=== PATIENT | female | born 1965 | race Caucasian/White ===

== ENCOUNTER 2020-09-28 15:00 | Outpatient (REF) | payer OTHER, SELFPAY ==
[2020-09-28 18:21] LABS: COVID-19 Test Negative (Negative)
== END 2020-09-28 15:01 | disposition home or self-care (01) ==
LOC: HO.EMPCOV 15:00
PROVIDERS: PCP Internal Medicine; Visit Provider Internal Medicine
DX: Z20.828 Contact with and (suspected) exposure to other viral communicable diseases (principal)
CPT/HCPCS: 87635; C9803

== ENCOUNTER 2023-02-27 09:35 | Outpatient (REF) | payer OTHER, SELFPAY ==
--- NOTE | ~2023-02-27 | XR_ITS ---
EXAMINATION: XR WRIST, RIGHT CLINICAL INFORMATION: Pain. COMPARISON: None available. TECHNIQUE: PA, lateral, and oblique views of the right wrist. FINDINGS: The bones and soft tissues are normal. No fracture. Alignment is anatomic with normal joint spaces. No erosions or abnormal soft tissue calcifications. XR/XR wrist RT min 3V IMPRESSION: Unremarkable right wrist.
== END 2023-02-27 09:36 | disposition home or self-care (01) ==
LOC: HO.HMGCX 09:35
PROVIDERS: PCP Internal Medicine; Visit Provider Nurse Practitioner Family
DX: M25.531 Pain in right wrist (principal)
CPT/HCPCS: 73110

== ENCOUNTER 2025-03-10 08:47 | Outpatient (REF) | payer OTHER, SELFPAY ==
--- NOTE | ~2025-03-10 | XR_ITS ---
EXAMINATION: XR HAND 3 OR MORE VIEWS LEFT HISTORY: W19.XXXA - Unspecified fall, initial encounter COMPARISON: There are no prior studies available for comparison. FINDINGS: Three views of the left hand are submitted. Osseous mineralization is normal. There is a nondisplaced transverse fracture of the distal radial metaphysis. An additional tiny osseous density is seen adjacent to the ulnar styloid which likely represents a fracture fragment. The joint spaces are preserved. The soft tissues are unremarkable. XR/XR hand LT min 3V IMPRESSION: Nondisplaced transverse fracture of the distal radial metaphysis. Probable additional fracture of the ulnar styloid. Electronically signed by: Saeed Garcia MD 03/10/2025 09:18 AM EDT
--- NOTE | ~2025-03-10 | XR_ITS ---
EXAMINATION: XR FOREARM, LEFT CLINICAL INFORMATION: W19.XXXA - Unspecified fall, initial encounter COMPARISON: None available. TECHNIQUE: AP and lateral views of the left forearm were obtained. FINDINGS: Nondisplaced fracture distal radial metaphysis. Minimally displaced ulnar styloid fracture. No additional fractures of the radius and ulna. Elbow joint appears intact without effusion. XR/XR forearm LT 2V IMPRESSION: Nondisplaced fracture distal radial metaphysis. Minimally displaced ulnar styloid fracture. Otherwise no additional fractures seen. Electronically signed by: Magnus Palma MD 03/10/2025 09:21 AM EDT
== END 2025-03-10 08:48 | disposition home or self-care (01) ==
LOC: HO.HMGCX 08:47
PROVIDERS: PCP Internal Medicine; Visit Provider Nurse Practitioner Family
DX: M79.632 Pain in left forearm (principal); M79.642 Pain in left hand; W19.XXXD Unspecified fall, subsequent encounter
CPT/HCPCS: 73090; 73130

== ENCOUNTER → 2025-03-10 08:50 | Outpatient (BNV) | payer OTHER, SELFPAY | PROVIDERS: PCP Internal Medicine; Visit Provider Radiology Diagnostic Radiology | DX: S52.321A Displaced transverse fracture of shaft of right radius, initial encounter for closed fracture (principal); W19.XXXA Unspecified fall, initial encounter | CPT/HCPCS: 73090; 73130 ==

== ENCOUNTER 2025-03-12 09:26 | Outpatient (REF) | payer OTHER, SELFPAY ==
--- NOTE | ~2025-03-12 | XR_ITS ---
EXAMINATION: XR WRIST, LEFT CLINICAL INFORMATION: M25.532 - Pain in left wrist COMPARISON: None TECHNIQUE: PA, lateral, oblique, and spot scaphoid views of the left wrist. FINDINGS: There is a mildly impacted fracture of the distal radial metaphysis. There is post traumatic ulnar plus variance measuring 3 mm. There is a corticated ossification in the ulnar fovea, probably chronic. XR/XR wrist LT w scaphoid IMPRESSION: Impacted distal left radial fracture with post traumatic ulnar plus variance measuring 3 mm. Electronically signed by: Wes Lebron MD 03/12/2025 05:33 PM EDT
== END 2025-03-12 09:27 | disposition home or self-care (01) ==
LOC: HO.HOSX 09:26
PROVIDERS: Visit Provider Orthopaedic Surgery
DX: M25.532 Pain in left wrist (principal); S52.502A Unspecified fracture of the lower end of left radius, initial encounter for closed fracture
CPT/HCPCS: 25600; 73110

== ENCOUNTER 2025-03-12 09:56 | Outpatient (AMB) | payer OTHER, SELFPAY ==
--- NOTE | 2025-03-12 10:04 | MHC.OFFVIS ---
Vital Signs 03/12/25 10:06 Height 5 ft 8 in Weight 140 lb BMI 21.3 Intake Visit Reasons: FC LT distal radial fx, Ulnar styloid fx Intake Note: Tresa 59 yr old left hand dominant female presents today for a fracture care visit for her left distal radius & ulnar styloid fracture from DOI 03/09/25. States while hiking she tripped and fell, she put her hand out to break her fall. Xrays werer taken taken, splinted and referrerd to orthopedic. Currently states she has no pain, denies numbness, tingling or surgery. Allergies No Known Allergies Allergy (Verified 03/12/25 10:07) HPI HPI FC LT distal radial fx, Ulnar styloid fx: Details: Tresa is a 59 year old left hand dominant woman who presents for a left distal radius fracture, after a fall, DOI: 03/09/25. She was out hiking when she tripped and fell. This was splinted and she was referred here. 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 She says she is doing well overall. She denies any pain, numbness, or tingling. [facility] Medical History (Updated 03/10/25 @ 09:34 by Puja Rubin MD) Closed fracture of left distal radius Social History (Updated 03/12/25 @ 10:08 by Pura Hale [facility]) Current occupation: left/ PCP MD at formerly [employer] Review of Systems Const All systems reviewed & are unremarkable except as noted in HPI and below Physical Exam Vital Signs: BMI result Body Mass Index 21.3 Const General: cooperative, healthy appearing and no acute distress Orientation/consciousness: patient oriented x3 HEENT Head: Yes normocephalic and Yes atraumatic Eyes EOM: EOMs intact bilaterally Resp Effort & Inspection: normal respiratory effort and able to speak in complete sentences Cardio Jugular venous distension: no JVD Skin General skin exam: turgor normal Rashes: no rashes Neuro General: patient oriented x3 Extrem Other: Evaluation of Left Upper Extremity: The patient is alert, oriented, and in no acute distress Neuro: Median, Ulnar, Radial nerves motor and sensory intact and sensation is normal to the tips of all digits Vascular: Cap refill brisk ROM: She can make a fist and extend all her digits Good elbow ROM without pain Skin: No lacerations or abrasions or evidence of open fracture General: Ecchymosis about the volar wrist Mild swelling about the wrist No Erythema or evidence of infection. TTP over the fracture site NTTP over the distal ulna No snuffbox or scaphoid tubercle tenderness Radiographs: 3 views of the left wrist + scaphoid view were taken and viewed by me today in clinic. They show a transverse distal radius metaphysis fracture, and a small ulnar styloid fracture. Satisfactory fracture alignment. Distal radius neutral on the lateral view. Psych Appearance: grossly normal Affect: normal affect Attitude: cooperative Assessment & Plan Assessment & Plan (1) Closed fracture of left distal radius: Code(s): S52.502A - Unspecified fracture of the lower end of left radius, initial encounter for closed fracture Category: Medical Plan Assessment & Plan: 1. Left distal radius metaphysis fracture, transverse From a fall, DOI: 03/09/25 I believe we can manage this non operatively. We will place her in a short-arm cast with follow up next week. New radiographs out of plaster. She does understand that there is a chance she may need surgery. If she looks good we will put her back in a cast for 3 more weeks. I educated her about this condition I discussed operative and non-operative treatment options We will manage this conservatively at this time, and she is in agreement She was placed in a short arm cast, to be worn for the next 4 weeks I discussed activity modifications, she is to lift nothing heavier than a cellphone for the next 4 weeks She will perform gentle finger ROM exercises at home She should keep her wrist elevated at or above heart level She works as a PCP. She was given a note to return to work on light duty, with a 1lb weight limit with her LUE, for the next 4 weeks. She will follow up next week with me, with X-rays, 3V L wrist, OOP to assess for any fracture motion. Anticipate either proceeding with surgery, or placement in a new cast if there is no motion Scribed for Phyllis Grant MD by Sarwat Cordero, medical grade shoemaker, on 03/12/25 at 10:15 AM, EST. Orders: Orders XR wrist LT w scaphoid Today M25.532 - Pain in left wrist Coding Level of Care Code New Pt Level 4 (16751) Diagnoses Closed fracture of left distal radius S52.502A
[2025-03-12 10:06] VITALS: BMI 21.3
== END 2025-03-12 10:57 | disposition home or self-care (01) ==
LOC: HO.HOS 09:56
PROVIDERS: PCP Internal Medicine; Visit Provider Orthopaedic Surgery
DX: S52.502A Unspecified fracture of the lower end of left radius, initial encounter for closed fracture (principal)
CPT/HCPCS: 25600; 99204

== ENCOUNTER → 2025-03-12 09:57 | Outpatient (BNV) | payer OTHER, SELFPAY | PROVIDERS: Visit Provider Radiology Diagnostic Radiology | DX: M25.532 Pain in left wrist (principal) | CPT/HCPCS: 73110 ==

== ENCOUNTER 2025-03-18 07:58 | Outpatient (REF) | payer OTHER, SELFPAY ==
--- NOTE | ~2025-03-18 | XR_ITS ---
EXAMINATION: XR WRIST NAVICULAR LEFT HISTORY: M25.539 - Pain in unspecified wrist COMPARISON: Comparison is made with the prior examination dated 03/12/2025. FINDINGS: Four views of the left wrist including a scaphoid view are submitted. Osseous mineralization is normal. Again seen is a fracture of the distal radial metaphysis. The fracture line remains visible. A corticated density adjacent to the ulnar styloid is also unchanged. The joint spaces are preserved. The soft tissues are unremarkable. XR/XR wrist LT w scaphoid IMPRESSION: Fracture of the distal radial metaphysis without change. Electronically signed by: Saeed Garcia MD 03/18/2025 09:35 AM EDT
== END 2025-03-18 07:59 | disposition home or self-care (01) ==
LOC: HO.HOSX 07:58
PROVIDERS: PCP Internal Medicine; Visit Provider Physician Assistant
DX: S52.502A Unspecified fracture of the lower end of left radius, initial encounter for closed fracture (principal); W19.XXXA Unspecified fall, initial encounter; Y93.9 Activity, unspecified; Y92.9 Unspecified place or not applicable; Y99.9 Unspecified external cause status
CPT/HCPCS: 29075; 73110

== ENCOUNTER 2025-03-18 07:58 | Outpatient (AMB) | payer OTHER, SELFPAY ==
--- NOTE | 2025-03-18 08:16 | A.OFFVIS_ITS ---
Vital Signs 03/18/25 08:42 Height 5 ft 8 in Weight 140 lb BMI 21.3 Handedness Left Intake Visit Reasons: OV- Left distal radius metaphysis fx DOI 03/09/25 Intake Note: Tresa is a left hand dominant female who presents today for a follow up visit for her left distal radius metaphysis fracture, transverse status post fall, DOI: 03/09/25. Short arm cast removed today in office and x-rays have been updated. Patient reports she is doing better. She mentions that the cast was fine. Patient is having some bruising on the volar aspect of the wrist. 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 She presents to the office today for evaluation of a left distal radius fracture that she sustained on 03/09/2025 when she fell. She is placed into a splint and instructed to follow up with orthopedics outpatient for further evaluation and treatment. 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 Able to perform full finger flexion and extension. Able to make a closed fist. Sensation intact. Capillary refill is brisk. 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 She presents to the office today for evaluation of a left distal radius fracture that she sustained on 03/09/2025 when she fell. She is placed into a splint and instructed to follow up with orthopedics outpatient for further evaluation and treatment. While in the office today, I discussed the case with Dr. Grant who was available but did not see the patient with me. I educated the patient on the importance of not performing any lifting pushing or pulling greater than a coffee cup or a cell phone. I discussed the risks of overdoing activities may lead to further displacement of the fracture of the distal radius. The patient was placed into a short-arm cast at this time. Patient was educated on cast maintenance and instructed to keep the cast clean, dry, and intact. However, should the cast become wet, dirty, damaged, or there are any concerns please call the office immediately for a cast change. She will follow up in [address] Grant as requested with repeat x-rays cast off, sooner if needed. X-rays of the left wrist and scaphoid which were obtained while in the office today and were reviewed by me, Charlotte Tim PA-C, revealed impacted left distal radius fracture. Orders: Orders XR wrist LT w scaphoid Today M25.539 - Pain in unspecified wrist Coding Level of Care Code New Pt Level 4 (32483) Diagnoses Closed fracture of left distal radius S52.502A CPT Codes Fracture Care - Fracture Billing Code: Fracture Billing Code ([id number]) Casting - CPT: 15284-Pcpk/Wrist Cast Application ([id number])
[2025-03-18 08:42] VITALS: BMI 21.3
== END 2025-03-18 09:13 | disposition home or self-care (01) ==
LOC: HO.HOS 07:59
PROVIDERS: PCP Internal Medicine; Visit Provider Physician Assistant
DX: S52.502A Unspecified fracture of the lower end of left radius, initial encounter for closed fracture (principal)
CPT/HCPCS: 29075; 99024

== ENCOUNTER → 2025-03-18 08:23 | Outpatient (BNV) | payer OTHER, SELFPAY | PROVIDERS: PCP Internal Medicine; Visit Provider Radiology Diagnostic Radiology | DX: M25.532 Pain in left wrist (principal) | CPT/HCPCS: 73110 ==

== ENCOUNTER 2025-04-15 10:40 | Outpatient (REF) | payer OTHER, SELFPAY | END 2025-04-15 10:41 | disposition home or self-care (01) | LOC: HO.HOSX 10:40 | PROVIDERS: Visit Provider Orthopaedic Surgery | DX: Z13.89 Encounter for screening for other disorder (principal) ==

== ENCOUNTER 2025-04-16 09:58 | Outpatient (REF) | payer OTHER, SELFPAY ==
--- NOTE | ~2025-04-16 | XR_ITS ---
CLINICAL HISTORY: M25.532 - Pain in left wrist 3 view left wrist Comparison: None provided Findings: There is an impacted distal radial metaphyseal fracture. Mild apex volar angulation without displacement. There is some sclerosis and periosteal reaction suggesting this may be a subacute fracture. Small osseous fragment adjacent to the ulnar styloid concerning for fracture. Mild surrounding soft tissue swelling. IMPRESSION: 1. Impacted mildly angulated distal radial metaphyseal fracture with some osseous sclerosis suggesting this may be a subacute fracture. Small osseous fragment adjacent to the ulnar styloid. This document has been electronically signed by: Lorraine Srivastava MD on 04/17/2025 09:20:08
== END 2025-04-16 09:59 | disposition home or self-care (01) ==
LOC: HO.HOSX 09:58
PROVIDERS: PCP Internal Medicine; Visit Provider Orthopaedic Surgery
DX: S52.502D Unspecified fracture of the lower end of left radius, subsequent encounter for closed fracture with routine healing (principal)
CPT/HCPCS: 73110

== ENCOUNTER 2025-04-16 09:58 | Outpatient (AMB) | payer OTHER, SELFPAY ==
[2025-04-16 10:09] VITALS: BMI 21.3
--- NOTE | 2025-04-16 10:09 | A.OFFVIS_ITS ---
Vital Signs 04/16/25 10:09 Height 5 ft 8 in Weight 140 lb BMI 21.3 Intake Visit Reasons: OV-LT distal radius metaphysis fx -03/09/25-w/XR Intake Note: Tresa 59 yr old right hand dominant female presents today for her left distal radius metaphysis fracture from DOI -03/09/25- At her last visit she was placed in a short arm cast and advise no heavy lifting. Cast removed and xrays updated in office. States she has no pain or concerns. Allergies No Known Allergies Allergy (Verified 04/16/25 10:15) HPI HPI OV-LT distal radius metaphysis fx -03/09/25-w/XR: Details: Tresa is a 59 year old left hand dominant woman who returns for her left distal radius fracture, after a fall, DOI: 03/09/25. She was out hiking when she tripped and fell. 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 She denies any pain, numbness, or tingling. She has no concerns at this time. She is planning to travel to [place] for a few weeks soon. 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[employer] Review of Systems Const All systems reviewed & are unremarkable except as noted in HPI and below Physical Exam Vital Signs: BMI result Body Mass Index 21.3 Const General: no acute distress and alert Orientation/consciousness: patient oriented x3 Neuro General: patient oriented x3 Extrem Other: Evaluation of Left Upper Extremity: The patient is alert, oriented, and in no acute distress Neuro: Median, Ulnar, Radial nerves motor and sensory intact and sensation is normal to the tips of all digits Vascular: Cap refill brisk ROM: She can make a fist and extend all her digits Good elbow ROM without pain Full pronation ~40 degrees supination General: Resolved ecchymosis Resolved swelling NTTP over the fracture site NTTP over the distal ulna No snuffbox or scaphoid tubercle tenderness Radiographs: 3 views of the left wrist + scaphoid view were taken and viewed by me today in clinic. They show a transverse distal radius metaphysis fracture, and a small ulnar styloid fracture. Satisfactory fracture alignment & good evidence of interval bony healing. Distal radius at about 3 degrees of dorsal tilt on the lateral view. Psych Appearance: grossly normal Affect: normal affect Attitude: cooperative Assessment & Plan Assessment & Plan (1) Closed fracture of left distal radius: Code(s): S52.502A - Unspecified fracture of the lower end of left radius, initial encounter for closed fracture Category: Medical Plan Assessment & Plan: 1. Left distal radius metaphysis fracture, transverse From a fall, DOI: 03/09/25 This is being managed non-operatively. I educated her about this condition We discontinued her short-arm cast today. She was fitted for a velcro wrist splint, to be worn with daily activities for the next 4 weeks. In 2 weeks she can stop wearing her splint when in the house I discussed activity modifications, she is to use her hand for lightweight activities at this time, and slowly increase as tolerated over the next few weeks. She is still to avoid any heavy impact activities or falls for the next 4 weeks She will perform gentle ROM exercises at home, out of her splint She works as a PCP. She did not ask for a work note today. She is planning to travel to [place] for the next few weeks She will follow up in 5-6 weeks for a ROM check, No X-rays unless she has new pain or injury Scribed for Phyllis Grant MD by Sarwat Cordero, medical records custodian, on 04/16/25 at 10:35 AM, EST. Orders: Orders XR wrist LT min 3V Today M25.532 - Pain in left wrist Coding Level of Care Code Global (56856) Diagnoses Closed fracture of left distal radius S52.502A
== END 2025-04-16 10:46 | disposition home or self-care (01) ==
LOC: HO.HOS 09:58
PROVIDERS: PCP Internal Medicine; Visit Provider Orthopaedic Surgery
DX: S52.502A Unspecified fracture of the lower end of left radius, initial encounter for closed fracture (principal)
CPT/HCPCS: 99024

== ENCOUNTER → 2025-04-16 10:23 | Outpatient (BNV) | payer OTHER, SELFPAY | PROVIDERS: PCP Internal Medicine; Visit Provider Radiology Diagnostic Radiology | DX: S52.502A Unspecified fracture of the lower end of left radius, initial encounter for closed fracture (principal) | CPT/HCPCS: 73110 ==